=== PATIENT | male | born 1975 | race Caucasian/White ===

== ENCOUNTER → 2024-01-27 10:31 | Outpatient (REF) | payer OTHER, SELFPAY | LOC: HWRAD 10:31 | PROVIDERS: ATTENDING PHYSICIAN Family Medicine | DX: M79.673 Pain in unspecified foot (principal) | CPT/HCPCS: 73630 ==

== ENCOUNTER → 2024-03-13 07:31 | Outpatient (REF) | payer OTHER, SELFPAY | LOC: HWRAD 07:31 | PROVIDERS: ATTENDING PHYSICIAN Radiology Diagnostic Radiology; FAMILY PHYSICIAN Family Medicine | DX: Z13.5 Encounter for screening for eye and ear disorders (principal) | CPT/HCPCS: 70030 ==

== ENCOUNTER → 2024-03-14 17:36 | Outpatient (REF) | payer OTHER, SELFPAY | LOC: MRI 3T 17:36 | PROVIDERS: ATTENDING PHYSICIAN Student in an Organized Health Care Education/Training Program; FAMILY PHYSICIAN Family Medicine | DX: M79.672 Pain in left foot (principal); M76.62 Achilles tendinitis, left leg | CPT/HCPCS: 73721 ==